=== PATIENT | male | born 1980 | race Hispanic/Latino ===

== ENCOUNTER 2016-10-15 18:59 | Emergency (ER) | payer SELFPAY ==
[2016-10-15 19:52] VITALS: BP 146/97
--- NOTE | 2016-10-15 20:34 | XRay Report ---
FINAL REPORT EXAM: XR WRIST 2V RT HISTORY: RIGHT WRIST PAIN for 3 weeks, no known injury COMPARISONS: None. FINDINGS: AP and lateral views right wrist No bone lesion, periosteal reaction, or fracture. No deformity or gross malalignment. IMPRESSION: No fracture or gross malalignment of the right wrist.
--- NOTE | 2016-10-15 23:34 | Emergency Department Report ---
Upper Extremity - HPI Chief Complaint: Extremity Problem,Nontraumatic Stated Complaint: RT WRIST INJURY/HEMORRHOID PAIN Time Seen by Provider: 10/15/16 22:37 Upper Extremity: Right Hand (pain at lateral edge of right hand) Occurred When: >5 Days (1 month) Mechanism: Fall Severity: moderate Symptoms: No Pain with Movement, No Deformity, No Limited Range of Movement, No Numbness, No Weakness, No Swelling, No Bruising/Ecchymosis, No Laceration or Abrasion Other History: 35-year-old male with past medical history hemorrhoids presents with complaint of one month of right lateral hand pain and 2 weeks of hemorrhoid pain. 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 Approximately one month ago patient began noticing pain in his right lateral hand. Denies any specific moment of trauma or incident. Patient states that the pain is in the middle aspect of his right lateral hand edge. No pain in wrist no pain inform no pain in fingers. Patient visibly flexing and extending his right wrist. Denies any significant swelling of his right hand. States that it may have been swollen earlier in the month. Also complaining of rectal itching and intermittent rectal pain with bowel movements. Patient states he has a history of hemorrhoids. Denies any rectal bleeding of bright red blood on toilet paper. States he has had a hemorrhoids surgically excised before. ED Review of Systems ROS: Stated complaint: RT WRIST INJURY/HEMORRHOID PAIN Other details as noted in HPI Constitutional: denies: chills, fever Eyes: denies: eye pain, eye discharge, vision change ENT: denies: ear pain, throat pain Respiratory: denies: cough, shortness of breath, wheezing Cardiovascular: denies: chest pain, palpitations Endocrine: no symptoms reported Gastrointestinal: other (hemorrhoid pain). denies: abdominal pain, nausea, diarrhea Genitourinary: denies: urgency, dysuria Musculoskeletal: as per HPI (right hand pain). denies: back pain, joint swelling, arthralgia Skin: denies: rash, lesions Neurological: denies: headache, weakness, paresthesias Psychiatric: denies: anxiety, depression Hematological/Lymphatic: denies: easy bleeding, easy bruising ED Past Medical Hx - Past Medical History Previous Medical History?: Yes Additional medical history: HEMMORRHOIDS - Surgical History Past Surgical History?: Yes Additional Surgical History: hemorroid removal - Social History Smoking Status: Never Smoker Substance Use Type: None - Medications Home Medications: Home Medications Medication Instructions Recorded Confirmed Last Taken Type EPINEPHrine (NF) [Epipen (Nf)] 0.3 mg IM ONCE #1 syringekit 07/08/14 Unknown Rx Famotidine [Pepcid] 20 mg PO BID #10 tablet 07/08/14 Unknown Rx Ibuprofen [Motrin] 800 mg PO Q8H PRN #30 tablet 07/08/14 Unknown Rx hydrOXYzine PAMOATE [Vistaril] 25 mg PO Q6HR PRN #14 capsule 07/08/14 Unknown Rx traMADol [Ultram] 50 mg PO Q6HR PRN #14 tablet 07/08/14 Unknown Rx Acetaminophen/Codeine [Tylenol #3] 1 tab PO Q6H PRN #15 tab 01/10/15 Unknown Rx Docusate Sodium [Colace CAP] 100 mg PO BID PRN #60 capsule 01/10/15 Unknown Rx Magnesium Citrate [Citrate of 300 ml PO NOW #1 bottle 01/10/15 Unknown Rx Magnesia] Docusate Sodium [Colace] 100 mg PO BID PRN #60 capsule 10/15/16 Unknown Rx Naproxen [Naprosyn TAB] 500 mg PO BID PRN #30 tablet 10/15/16 Unknown Rx PE/Shk Lvr/Mo/Pet,Wh [Preparation 28 gm GA BID #1 tube 10/15/16 Unknown Rx H] Upper Extremity Exam - Exam General: Vital signs noted. No distress. Alert and acting appropriately. Head and Torso: No HEENT Abnormality, No Neck Tenderness, No Chest/Lungs Abnormality, No Abdominal Tenderness, No Back Tenderness Shoulder Exam: Yes Normal Range of Motion in Shoulder, No Shoulder Tenderness, No Clavicle Tenderness, No Shoulder Deformity, No AC Joint Tenderness Arm Exam: No Arm/Humerus Tenderness, No Arm Deformity Elbow: No Elbow Tenderness, No Normal Range of Motion in Elbow, No Elbow Deformity Forearm: No Forearm Tenderness, No Forearm Deformity, No Pain with Pronation, No Pain with Supination Wrist: Yes Normal ROM in Wrist, No Wrist Tenderness, No Wrist Deformity, No Snuffbox Tenderness, No Pain with Axial Thumb Compression Hand: Yes Hand Tenderness (some tenderness with deep palpation of the mid shaft right metacarpal region and lateral aspect of right hand.), Yes Normal ROM in Digit(s) (finger range of motion at MCPs DIPs and PIPs fully intact all fingers right hand lumbrical motion intact on exam), No Hand Deformity, No Digit Tenderness, No Digit(s) Deformity, No Tendon Dysfunction CMS Exam: Yes Normal Distal Pulses (distal radial and ulnar pulses fully intact) , Yes Normal Capillary Refill (capillary refill less than one second in all fingers), Yes Normal Distal Sensation (distal sensation intact on palpation), No Broken Skin Hand L/R Front: 1 - Mild pain here with deep palpation ED Course Vital Signs 10/15/16 19:45 Temperature 98.0 F Pulse Rate 67 Respiratory 16 Rate Blood Pressure 146/97 O2 Sat by Pulse 99 Oximetry ED Medical Decision Making - Medical Decision Making A/P: Right hand pain, right hand sprain, external hemorrhoid 1-naproxen when necessary, Colace, sitz baths when necessary 2-right hand splint, boxer splint to support lateral edge of right hand. X-ray shows no fractures no snuffbox tenderness. Strength 5 out of 5 right hand and all digits capillary refill less than 1 second distal sensation is intact. Wrist flexion and extension intact. Range of motion MCPs DIPs PIP is fully intact. There is some mild tenderness on deep palpation of the mid shaft fifth metacarpal region lateral edge of hand. RICE therapy 3-follow-up with orthopedics for hand sprain and outpatient surgery for hemorrhoids Critical care attestation.: If time is entered above; I have spent that time in minutes in the direct care of this critically ill patient, excluding procedure time. ED Disposition Clinical Impression: Right hand pain Hemorrhoids Qualifiers: Hemorrhoid type: second degree Qualified Code(s): K64.1 - Second degree hemorrhoids Disposition: - TO HOME OR SELFCARE Is pt being admited?: No Does the pt Need Aspirin: No Condition: Stable Instructions: Hemorrhoids (ED), Hand Sprain (ED) Prescriptions: Docusate Sodium [Colace] 100 mg PO BID PRN #60 capsule PRN Reason: Constipation Naproxen [Naprosyn TAB] 500 mg PO BID PRN #30 tablet PRN Reason: Pain PE/Shk Lvr/Mo/Pet,Wh [Preparation H] 28 gm GA BID #1 tube Referrals: FLORA VACA MD [Staff Physician] - 3-5 Days KIRSTY VENTURA MD [Staff Physician] - 3-5 Days Forms: Accompanied Note, Work/School Release Form(ED) Time of Disposition: 23:34
[2016-10-15] MEDS ORDERED: MOTRIN PO ONE (23:35)
== END 2016-10-15 23:45 | disposition home or self-care (01) ==
LOC: ED 18:59
DX: K64.1 Second degree hemorrhoids (principal); M79.641 Pain in right hand
CPT/HCPCS: 99283

== ENCOUNTER 2018-07-07 18:32 | Emergency (ER) | payer OTHER ==
[2018-07-07 19:19] VITALS: BP 132/76
--- NOTE | 2018-07-07 19:20 | Emergency Department Report ---
Blank Doc - Documentation Documentation: This is a 37-year-old male that presents with right midback pain with swelling. Stated noticed this 6 months ago. Denies any injuries or trauma. This initial assessment/diagnostic orders/clinical plan/treatment(s) is/are subject to change based on patient's health status, clinical progression and re- assessment by fellow clinical providers in the ED. Further treatment and workup at subsequent clinical providers discretion. Patient/guardians urged not to elope from the ED as their condition may be serious if not clinically assessed and managed. Initial orders include: 1- Patient sent to [facility] for further evaluation and treatment
--- NOTE | 2018-07-07 22:26 | Emergency Department Report ---
ED Back Pain/Injury HPI - General Chief Complaint: Back Pain/Injury Stated Complaint: RT SIDE KNOT/PAIN Time Seen by Provider: 07/07/18 19:17 Source: patient Limitations: No Limitations - History of Present Illness Initial Comments: Pt is a 37 yo male who presents to the ED with c/o a knot to his right upper back that began 1 year ago. He states it has gradually gotten larger. He states it is causing back pain. He denies any drainage, fever, erythema. He has not seen anyone for this complaint. The patient states he also believes he strained a muscle in his right upper back due to overexerting himself at the gym. He denies any fall, injury, or trauma. 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 He denies any previous injury. He denies any numbness, tingling, or weakness. denies any PMHx. - Related Data Previous Rx's Medication Instructions Recorded Last Taken Type EPINEPHrine (NF) [Epipen (Nf)] 0.3 mg IM ONCE #1 syringekit 07/08/14 Unknown Rx Famotidine [Pepcid] 20 mg PO BID #10 tablet 07/08/14 Unknown Rx hydrOXYzine PAMOATE [Vistaril] 25 mg PO Q6HR PRN #14 capsule 07/08/14 Unknown Rx Docusate Sodium [Colace CAP] 100 mg PO BID PRN #60 capsule 01/10/15 Unknown Rx Magnesium Citrate [Citrate of 300 ml PO NOW #1 bottle 01/10/15 Unknown Rx Magnesia] Docusate Sodium [Colace CAP] 100 mg PO BID PRN #60 capsule 10/15/16 Unknown Rx PE/Shk Lvr/Mo/Pet,Wh [Preparation 28 gm NE BID #1 tube 10/15/16 Unknown Rx H] Cyclobenzaprine [Flexeril] 10 mg PO QHS PRN #14 tablet 07/07/18 Unknown Rx Ibuprofen 800 mg PO Q8HR PRN #30 tablet 07/07/18 Unknown Rx Allergies Allergy/AdvReac Type Severity Reaction Status Date / Time venom-honey bee Allergy Swelling Verified 07/07/14 22:26 [bee venom (honey bee)] ED Review of Systems ROS: Stated complaint: RT SIDE KNOT/PAIN Other details as noted in HPI Comment: All other systems reviewed and negative ED Past Medical Hx - Past Medical History Previous Medical History?: Yes Additional medical history: HEMMORRHOIDS - Surgical History Past Surgical History?: Yes Additional Surgical History: hemorroid removal - Social History Smoking Status: Never Smoker Substance Use Type: None - Medications Home Medications: Home Medications Medication Instructions Recorded Confirmed Last Taken Type EPINEPHrine (NF) [Epipen (Nf)] 0.3 mg IM ONCE #1 syringekit 07/08/14 Unknown Rx Famotidine [Pepcid] 20 mg PO BID #10 tablet 07/08/14 Unknown Rx hydrOXYzine PAMOATE [Vistaril] 25 mg PO Q6HR PRN #14 capsule 07/08/14 Unknown Rx Docusate Sodium [Colace CAP] 100 mg PO BID PRN #60 capsule 01/10/15 Unknown Rx Magnesium Citrate [Citrate of 300 ml PO NOW #1 bottle 01/10/15 Unknown Rx Magnesia] Docusate Sodium [Colace CAP] 100 mg PO BID PRN #60 capsule 10/15/16 Unknown Rx PE/Shk Lvr/Mo/Pet,Wh [Preparation 28 gm NE BID #1 tube 10/15/16 Unknown Rx H] Cyclobenzaprine [Flexeril] 10 mg PO QHS PRN #14 tablet 07/07/18 Unknown Rx Ibuprofen 800 mg PO Q8HR PRN #30 tablet 07/07/18 Unknown Rx ED Physical Exam - General Limitations: No Limitations General appearance: alert, in no apparent distress - Head Head exam: Present: atraumatic, normocephalic - Eye Eye exam: Present: normal appearance - ENT ENT exam: Present: mucous membranes moist - Neck Neck exam: Present: normal inspection, full ROM. Absent: tenderness - Respiratory Respiratory exam: Present: normal lung sounds bilaterally. Absent: respiratory distress, wheezes, rales, rhonchi, stridor, chest wall tenderness, accessory muscle use, decreased breath sounds, prolonged expiratory - Cardiovascular Cardiovascular Exam: Present: regular rate, normal rhythm, normal heart sounds. Absent: systolic murmur, rubs, gallop - Back Exam Back exam: Present: other (4 cm area of edema, feels like fatty tissue consistent with lipoma, no erythema, no drainage, no tenderness, no warmth, mild amount of ttp to the right t-spine paraspinal muscular tenderness, no midline tenderness of the c-spine, t-spine, or l-spine, no step offs, no deformities) - Neurological Exam Neurological exam: Present: alert, oriented X3, CN II-XII intact. Absent: normal gait, motor sensory deficit - Psychiatric Psychiatric exam: Present: normal affect, normal mood - Skin Skin exam: Present: warm, dry, intact ED Course Vital Signs 07/07/18 07/07/18 19:17 22:36 Temperature 97.6 F Pulse Rate 68 64 Respiratory 16 17 Rate Blood Pressure 132/76 O2 Sat by Pulse 98 97 Oximetry ED Medical Decision Making - Medical Decision Making Pt is a 37 yo male who presents to the ED with c/o a knot to his right upper back that began 1 year ago. He states it has gradually gotten larger. He states it is causing back pain. He denies any drainage, fever, erythema. He has not seen anyone for this complaint. The patient states he also believes he strained a muscle in his right upper back due to overexerting himself at the gym. He denies any fall, injury, or trauma. 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 He denies any previous injury. He denies any numbness, tingling, or weakness. denies any PMHx. examination of the back is consistent with a possible lipoma, will have pt follow up with a general surgeon, gave patient print out of resources, may also be seen at [facility]. pt has t-spine paraspinal tenderness, no midline tenderness, no neuro deficits, findings consitent with muscle strain due to overexerting self at the gym. Will give anti-inflammatory and short course of muscle relaxer. Advised to only take muscle relaxer at night as needed and do not drive or operate heavy machinery. use heat, ice, rest, epsom salt bath. Follow up with a primary care provider in the next 2-3 days. Return to the emergency room for any new or worsening symptoms. - Differential Diagnosis lipoma, sebaceous cyst, mass, muscle strain Critical care attestation.: If time is entered above; I have spent that time in minutes in the direct care of this critically ill patient, excluding procedure time. ED Disposition Clinical Impression: Muscle strain Lipoma Qualifiers: Lipoma location: trunk Qualified Code(s): D17.1 - Benign lipomatous neoplasm of skin and subcutaneous tissue of trunk Disposition: DC-01 TO HOME OR SELFCARE Is pt being admited?: No Does the pt Need Aspirin: No Condition: Stable Instructions: Muscle Strain (ED), Lipoma (ED) Additional Instructions: Follow up with a primary care doctor and a general surgeon in the next 2-3 days. Use list of community resources or try the [facility]. Use medication as prescribed. Drink plenty of fluids. Only use muscle relaxer at night as needed and do not drive or operate heavy machinery. Return to the emergency room for any new or worsening symptoms. Use heat, ice, rest, and epsom salt bath. Prescriptions: Cyclobenzaprine [Flexeril] 10 mg PO QHS PRN #14 tablet PRN Reason: Muscle Spasm Ibuprofen 800 mg PO Q8HR PRN #30 tablet PRN Reason: Pain, Moderate (4-6) Referrals: [facility] [Primary Care Provider] - 2-3 Days ANDREA DESAI DO [Staff Physician] - 2-3 Days Time of Disposition: 22:23 Print Language: SAMI
[2018-07-07] MEDS ORDERED: FLEXERIL PO ONE (22:33)
== END 2018-07-07 22:36 | disposition home or self-care (01) ==
LOC: ED 18:32
DX: S29.012A Strain of muscle and tendon of back wall of thorax, initial encounter (principal); D17.9 Benign lipomatous neoplasm, unspecified; Z91.030 Bee allergy status; X58.XXXA Exposure to other specified factors, initial encounter; Y93.89 Activity, other specified; Y92.89 Other specified places as the place of occurrence of the external cause; Y99.8 Other external cause status
CPT/HCPCS: 99282